=== PATIENT | female | born 1995 | race Two or more races ===

== ENCOUNTER 2025-05-15 13:49 | Emergency (ER) | payer OTHER ==
[~2025-05-15] VITALS: Ht 157.5 cm; Wt 61.5 kg
--- NOTE | 2025-05-15 14:06 | ED.PDOC ---
HPI Comments 29 y/o F with history of PCOS and family history of heart disease brought in by EMS from [facility] for evaluation of intermittent chest pain and elevated troponin. Patient states she has been having left parasternal intermittent chest pain starting around 2 nights ago. She describes the pain as "like a bruise someone is pressing on, and states the pain is not currently present. She went to [facility], blood tests were performed and patient was advised troponin was elevated. Patient denies any current chest pain, shortness of breath, dizziness, syncope, nausea, vomiting or edema. Chief Complaint: Chest Pain Time Seen by MD: 13:50 Reviewed Notes: Nurses Notes, Medications, Allergies Allergies: Coded Allergies: NO KNOWN ALLERGIES (Unverified , 05/15/25) Home Meds Active Scripts Cephalexin Monohydrate (Cephalexin) 500 Mg Cap, 1 CAP PO QID for 10 Days, #40 CAP Prov:LYNN MAYS MD 05/15/25 Information Source: Patient, Relative (Father) Mode of Arrival: EMS Past Medical History Past Medical History (Other): PCOS Surgical History (Other): [place] tooth extraction [employer] History: Other (PCOS) Family History Family History: No family hx of Cancer, No family hx of DM, No family hx of H TN, No family hx ofKidney tristin, No family hx of Liver tristin, No family hx of Lung tristin, No family hx of Stroke, Family hx of heart tristin (onset age <65) Social History Smoker: Non-Smoker Alcohol: Occasionally Drugs: Denies Drug Use Lives In: Home All Other Systems: Reviewed and Negative (Comprehensive systems review obtained and negative except for what is stated in the HPI.) Physical Exam General Appearance: No Apparent Distress HEENT: Other (Pupils and face symmetric. Moist mucous membranes.) Neck: Full Range of Motion, Normal Inspection Respiratory: No Accessory Muscle Use, No Respiratory Distress Cardiovascular: No Edema, No JVD, Regular Rate/Rhythm Breast Exam: Deferred Gastrointestinal: Other (Nondistended) Genitalia: Deferred Pelvic: Deferred Rectal: Deferred Extremities: Normal inspection, Normal range of motion, No pedal edema Neurologic: Alert (Oriented x4), Normal Affect, Normal Mood, Other (Ambulatory) Cerebellar Function: NOT DONE Reflexes: NOT DONE Skin: Dry, Normal Color, Warm Lymphatic: NOT DONE EKG EKG : Comments Sinus rhythm, rate 98, normal intervals, normal axis, Q-wave in lead 3, nonspecific T change. Was a procedure done? Was a procedure done?: No CP Differential Dx Differential Diagnosis: N/A Differential Diagnosis: N/A Differential Diagnosis: Angina, Chest Wall Pain, Costochondritis, Esophageal reflux/spasm, Gastritis, Myocardial Infarction, Pericarditis, Pneumonia, Pulm onary Embolus X-Ray, Labs, Meds, VS Vital Signs Date Time Temp Pulse Resp B/P (MAP) Pulse Ox O2 Delivery O2 Flow Rate FiO2 05/15/25 15:45 79 24 104/63 (77) 97 05/15/25 14:15 94 16 99 Room Air* 0 21 05/15/25 14:15 98.7 94 16 121/65 (83) 99 98.7 05/15/25 14:07 98 05/15/25 13:50 98.4 96 16 132/67 99 98.4 Lab Test 05/15/25 15:40 05/15/25 14:20 05/15/25 14:11 Range/Units Troponin I High Sensitivity < 3 L < 3 L </=34 ng/L Urine Color Yellow Yellow Urine Clarity Turbid H Clear Urine pH 6.0 5.0-9.0 Urine Specific [place] 1.022 1.001-1.035 Urine Protein Trace H Negative Urine Ketones Negative Negative Urine Blood 3+ H Negative /uL Urine Nitrite Negative Negative Urine Bilirubin Negative Negative Urine Urobilinogen Normal Negative mg/dL Urine Leukocyte Esterase 1+ Negative /uL Urine RBC 1109 0 - 4 /hpf Urine Microscopic WBC 11 H 0-5 /HPF Urine Squamous Epithelial Cells Few <5 /hpf Urine Bacteria None seen None Seen /hpf Urine Mucus Few None Seen Urine Glucose Normal Normal mg/dL Urine Test Negative Negative White Blood Count 5.5 4.4-10.8 10^3/uL Red Blood Count 5.03 4.0-5.20 10^6/uL Hemoglobin 14.0 12.2-16.2 g/dL Hematocrit 41.8 36.0-46.0 % Mean Corpuscular Volume 83.0 80.0-100.0 fL Mean Corpuscular Hemoglobin 27.7 L 28.0-32.0 pg Mean Corpuscular Hemoglobin Concent 33.4 32.0-36.0 g/dL Red Cell Distribution Width 15.4 H 11.8-14.3 % Platelet Count 244 140-450 10^3/uL Mean Platelet Volume 8.5 6.9-10.8 fL Neutrophils (%) (Auto) 56.4 37.0-80.0 % Lymphocytes (%) (Auto) 33.7 10.0-50.0 % Monocytes (%) (Auto) 8.1 0.0-12.0 % Eosinophils (%) (Auto) 1.4 0.0-7.0 % Basophils (%) (Auto) 0.4 0.0-2.0 % Neutrophils # (Auto) 3.1 1.6-8.6 10 ^3/uL Lymphocytes # (Auto) 1.8 0.4-5.4 10 ^3/uL Monocytes # (Auto) 0.4 0-1.3 10 ^3/uL Eosinophils # (Auto) 0.1 0-0.8 10 ^3/uL Basophils # (Auto) 0 0-0.2 10 ^3/uL Nucleated Red Blood Cells 0.0 % Erythrocyte Sedimentation Rate 11 0-20 mm/hr D-Dimer, Quantitative < 0.19 0.0-0.49 mg/L FEU Sodium Level 142 136-145 mmol/L Potassium Level 4.1 3.5-5.1 mmol/L Chloride Level 107 98-107 mmol/L Carbon Dioxide Level 27 20-31 mmol/L Anion Gap 8 5-15 Blood Urea Nitrogen 6 L 9-23 mg/dL Creatinine 0.75 0.550-1.02 mg/dL Glomerular Filtration Rate Calc 112 >90 mL/min BUN/Creatinine Ratio 8.0 L 10.0-20.0 Serum Glucose 82 74-106 mg/dL Calcium Level 9.2 8.7-10.4 mg/dL C-Reactive Protein High Sensitivity 0.49 <1.0 mg/dL B-Type Natriuretic Peptide 11.77 0-100 pg/mL Current Medications Medications (Trade) Dose Ordered Sig/Debora Route Start Time Stop Time Status Last Admin Aspirin 325 mg ONCE ONCE PO 05/15/25 14:15 05/15/25 14:16 DC 05/15/25 14:35 X-Ray, Labs, Meds, VS Comment 49-year-old female with a history of PCOS brought in by EMS from [facility] for evaluation of chest pain and elevated troponins at the urgent care Vitals unremarkable Exam unremarkable Rhythm strip independently interpreted by me: Sinus rhythm, rate 98, no ectopy. Chest x-ray unremarkable CBC, basic metabolic panel, BNP, D-dimer and 2 serial troponins unremarkable for any abnormality of acute significance. UA abnormal indicating possible UTI. (Patient currently on menses, so could represent contaminated specimen. Patient agreed to presumptive treatment with antibiotics) Patient treated with the following in the ED: Aspirin 325 mg p.o., Rocephin 1 g IV On re-evaluation, patient was resting comfortably with stable vitals. Hospitalization was considered, however patient had essentially unremarkable workup and is asymptomatic. She appears stable for discharge with close outpatient follow-up with her primary physician. Rx Keflex. Time of 1ST Reevaluation: 14:20 Reevaluation 1ST: Unchanged Time of 2ND Reevaluation: 16:15 Reevaluation 2ND: Unchanged Consultation: Cardiology Patient Education/Counseling: Diagnosis, Treatment Family Education/Counseling: Diagnosis, Treatment SEPSIS Sepsis Screen Date sepsis recognized/suspect: May 15, 2025 Time Sepsis recognized/suspect: 1346 Recent Procedure: No Respiratory Rate >20: No Heart Rate >90: Yes Temp<36 C (96.8 F) or >38.3 C: No SBP <90 or MAP <65 mmHG: No New Acute Mental Status Change: No Is the patient on CPAP, BIPAP,: No SEPSIS EXCLUSION NOTE: Sepsis Exclusion Note: Patient presents with SIRS criteria, but the SIRS response is attributed to [anxiety], not sepsis. Sepsis bundle is not initiated at this time, due to this reason. Further management will focus on the treatment of the above condition (s). Physician Orders Electrocardigram (05/15/25 13:55) Chest Portable (05/15/25 13:56) Troponin-I Hs (05/15/25 16:56) Echo 2d Mode Cardiac Dop (05/15/25 14:55) Ceftriaxone 1gm/50ml D5w (Rocephin) (05/15/25 16:15) Vital Signs Date Time Temp Pulse Resp B/P (MAP) Pulse Ox O2 Delivery O2 Flow Rate FiO2 05/15/25 15:45 79 24 104/63 (77) 97 05/15/25 14:15 94 16 99 Room Air* 0 21 05/15/25 14:15 98.7 94 16 121/65 (83) 99 98.7 05/15/25 14:07 98 05/15/25 13:50 98.4 96 16 132/67 99 98.4 Laboratory Tests Test 05/15/25 14:11 White Blood Count 5.5 10^3/uL (4.4-10.8) Medications Medications Dose Ordered Sig/Debora Route Start Time Stop Time Status Last Admin Dose Admin Aspirin 325 mg ONCE ONCE PO 05/15/25 14:15 05/15/25 14:16 DC 05/15/25 14:35 Departure 1 Departure Time of Disposition: 16:30 Impression: Primary Impression: Chest pain with low risk for cardiac etiology Additional Impression: UTI (urinary tract infection) Qualified Codes: N39.0 - Urinary tract infection, site not specified; R31.9 - Hematuria, unspecified Disposition: 01 HOME / SELF CARE / HOMELESS Condition: Stable Additional Instructions: Follow-up with your primary doctor in 1-2 days. I have prescribed antibiotics to treat a possible UTI. Return to ER for persistent or worsening symptoms. e-Prescriptions Cephalexin Monohydrate (Cephalexin) 500 Mg Cap 1 CAP PO QID for 10 Days, #40 CAP Prov: LYNN MAYS MD 05/15/25 Discharged With: Relative (Father) Critical Care Note Critical Care Time?: No Stability Stability form required: No Heart Score Heart Score: Heart Score Response (Comments) Value History Slightly Suspicious 0 EKG Normal 0 Age <45 0 Risk Factors 1 or 2 risk factors 1 Troponin Normal limit 0 Total 1 I personally scribed for LYNN MAYS MD ([email or web address]) on 05/15/25 at 14:06. Electronically submitted by Carlos Enrique Pa [email or web address]). LYNN MAYS MD May 15, 2025 14:06
[2025-05-15 14:15] VITALS: PULSE 94; RESP 16; TEMP 98.7; O2SAT 99
[2025-05-15 14:24] LABS: Hematocrit 41.8 % (36.0-46.0); Hemoglobin 14.0 g/dL (12.2-16.2); Mean Corpuscular Hemoglobin 27.7 pg (28.0-32.0); Mean Corpuscular Volume 83.0 fL (80.0-100.0); Nucleated Red Blood Cells % 0.0 %
[2025-05-15 14:32] LABS: Chloride 107 mmol/L (98-107); Potassium 4.1 mmol/L (3.5-5.1); Sodium 142 mmol/L (136-145)
[2025-05-15 14:33] LABS: Anion Gap 8 (5-15); Calcium 9.2 mg/dL (8.7-10.4); Carbon Dioxide 27 mmol/L (20-31)
[2025-05-15 14:38] LABS: BUN/Creatinine Ratio 8.0 (10.0-20.0); Glucose 82 mg/dL (74-106)
[2025-05-15 14:39] LABS: Blood Urea Nitrogen 6 mg/dL (9-23)
[2025-05-15 15:03] LABS: Urine Protein, UAD TRACE (Negative)
--- NOTE | 2025-05-15 16:05 | DVH ---
CHEST RADIOGRAPH Indication: cp Technique: Single frontal view of the chest was obtained Comparison: None FINDINGS: Lines and Tubes: None Lungs: No focal consolidation. Pleura: No effusion. No pneumothorax. Cardiomediastinal contours: Unremarkable Bones: No acute osseous abnormality. IMPRESSION: 1. No acute cardiopulmonary disease.
--- NOTE | 2025-05-15 16:10 | DVHSR ---
APPROVED REPORT EXAM: Two-dimensional and M-mode echocardiogram with Doppler, color Doppler and Bubble Study. Blood Pressure: 121/65 mmHg INDICATION Chest Pain Eval Pericarditis RISK FACTORS Height: 5' 2", Weight: 135 DIMENSIONS LVDd4.2 (3.8-5.7cm)LA (2D)3.5 (1.9-4.0cm)Aortic Root2.4 (2.0-3.7cm) LVDs2.7 (2.5-4.0cm)LA (MM) (1.9-4.0cm)Aortic Cusp Exc1.6 (1.5-2.0cm) EF (%) 65.0 (55-70%)Rt. Atrium3.2 (1.9-4.0cm)Asc. Aorta cm IVSd0.8 (0.7-1.1cm)RV (D) (1.8-2.4cm) PWd0.7 (0.7-1.1cm) Mitral Valve MitralMitral Stenosis E wave0.90m/sMV Mean GR.mmHg A wave0.60m/sMV Peak GR.mmHg E/A ratio1.52D MVAcm2 Aortic Valve Aortic ValveAortic Stenosis V11.00m/Estefanía Mean GR.4mmHg V21.30m/Estefanía Peak GR.7mmHg LVOT Diameter1.9 (1.8-2.4cm)Doppler AVA2.18cm2 Pulmonic Valve V20.80m/s Conclusion lvef 65% normal LV and RV function and size normal atria no severe valve abnormalities noted normal pericardium
[2025-05-15] MEDS ORDERED: CEPH500C PO (16:17)
[2025-05-15] MEDS: cefTRIAXone 1GM/50ML D5W 50 ML IV ONE (16:30)
[2025-05-15 17:00] VITALS: BP 120/69; PULSE 82; RESP 20; O2SAT 99
== END 2025-05-15 17:04 | disposition home or self-care (01) ==
LOC: ER 13:49 → EDBD 13:49 → ER 17:04
DX: R07.89 Other chest pain (principal); N39.0 Urinary tract infection, site not specified; E28.2 Polycystic ovarian syndrome; Z98.890 Other specified postprocedural states
CPT/HCPCS: 36415; 71045; 80048; 81001; 81025; 83880; 84484; 85025; 85379; 85652; 86141; 93306; 96365; 99285; J0696